=== PATIENT | male | born 1950 | race Caucasian/White ===

== ENCOUNTER 2019-03-21 23:09 | Emergency (ER) | payer BC, OTHER ==
[2019-03-21 23:26] LABS: #Eosinphils 0.1 thou/uL (0.0-0.7); #Lymphocytes 1.7 thou/uL (1.20-3.40); #Neutrophils 5.6 thou/uL (1.40-6.50); %Basophils 0.3 % (0.0-1.0); %Eosinophils 1.3 % (0.0-10.0); %Lymphocytes 19.9 % (21.0-51.0); %Monocytes 11.8 % (0.0-10.0); %Neutrophils 66.7 % (42.0-75.0); Hemoglobin 15.4 g/dL (14.0-18.0); Mean Corpuscular HGB CONC 33.8 g/dL (32.0-36.0); Mean Corpuscular Hemoglobin 31.8 pg (27.0-31.0); Mean Corpuscular Volume 94.1 fL (78.0-98.0); Mean Platelet Volume 9.2 fL (7.4-10.4); Platelet Count 139 thou/uL (130-400); RBC Distribution Width 11.8 % (11.5-14.5); Red Blood Cell (RBC) Count 4.84 mill/uL (4.70-6.10); White Blood Cell (WBC) Count 8.3 thou/uL (4.8-10.8)
--- NOTE | 2019-03-21 23:30 | CT ---
EXAM: HEAD CT WITHOUT CONTRAST: 03/21/19 HISTORY: Left sided weakness with arm drift. Blurry vision and headache. COMPARISON: None. FINDINGS: No parenchymal hemorrhage. No extra-axial hematoma. No midline shift. Basilar cisterns are patent. With regards to the cerebrum, cortical lopez-white matter differentiation is preserved. There is mixed attenuation involving the right cerebellar hemisphere suggesting a subacute infarct. T here does appear to be some mass effect upon the fourth ventricle with narrowing of the fourth ventr icle. No evidence of associated hydrocephalus. There may be a subacute infarct involving the left bra chium pontis. The cerebral sulci are patent and symmetric. Hypodensity in the left lentiform nucleus may represent a remote lacunar infarct. Calvarium is intact. Adequate aeration of the mastoid air cells. Mild mucosal disease of the ethmoid air cells. 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 There is some mass effect upon the cerebe llar vermis and mild narrowing of the fourth ventricle. No evidence of associated obstructive hydroce phalus. Results of the study discussed with Dr. Short, 03/21/19 at 11:20 p.m. Code CR POS: [id number]
[2019-03-21 23:33] LABS: PTT 28.4 SEC (22.9-36.1); Prothrombin Time 13.2 SEC (12.0-14.7)
[2019-03-21 23:38] LABS: ALT (SGPT) 34 U/L (8-55); AST (SGOT) 24 U/L (5-34); Albumin 4.4 g/dL (3.4-4.8); Alkaline Phosphatase 70 U/L (40-110); Anion Gap 10 mmol/L (10-20); BUN (Urea Nitrogen) 19 mg/dL (8.4-25.7); Bilirubin, Total 0.5 mg/dL (0.2-1.2); CK (CPK) 87 U/L (30-200); Calc. Creatinine Clearance 0 mL/min (70-130); Calcium 9.4 mg/dL (7.8-10.44); Carbon Dioxide 28 mmol/L (23-31); Chloride 101 mmol/L (98-107); Estimated GFR-MDRD Greater than 90; Glucose 156 mg/dL (80-115); Potassium 4.1 mmol/L (3.5-5.1); Protein, Total 7.4 g/dL (5.8-8.1); Sodium 135 mmol/L (136-145)
[2019-03-22] MEDS ORDERED: Morphine 4 MG/ML VIAL ONE (00:40)
[2019-03-22] MEDS ORDERED: Aspirin 325 MG TAB ONE (00:41)
[2019-03-22] MEDS ORDERED: Acetaminophen 500 MG TAB ONE (00:41)
[2019-03-22] MEDS ORDERED: Labetalol HCl 100 MG/20 ML VIAL ONE (00:54)
== END 2019-03-22 02:37 | disposition short-term general hospital (02) ==
LOC: ERS 23:09
DX: I63.9 Cerebral infarction, unspecified (principal); I10 Essential (primary) hypertension; Z87.891 Personal history of nicotine dependence; Z79.899 Other long term (current) drug therapy
CPT/HCPCS: 36416; 70450; 80053; 82550; 84484; 85025; 85610; 85730; 93005; 96374; 96375; J2270